=== PATIENT | female | born 1985 | race Caucasian/White ===

== ENCOUNTER 2019-01-27 13:19 | Emergency (ER) | payer OTHER ==
[~2019-01-27] VITALS: Ht 157.5 cm; Wt 126.0 kg
[2019-01-27 13:22] VITALS: BP 167/84
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
== END 2019-01-27 15:19 | disposition home or self-care (01) ==
LOC: ED 15:13
DX: S80.02XA Contusion of left knee, initial encounter (principal); S90.811A Abrasion, right foot, initial encounter; I82.492 Acute embolism and thrombosis of other specified deep vein of left lower extremity; V03.10XA Pedestrian on foot injured in collision with car, pick-up truck or van in traffic accident, initial encounter; Y93.89 Activity, other specified; Y92.89 Other specified places as the place of occurrence of the external cause; Y99.8 Other external cause status
CPT/HCPCS: 99284